=== PATIENT | female | born 1990 | race African-American/Black ===

== ENCOUNTER 2023-05-03 10:24 | Emergency (ER) | payer OTHER ==
[~2023-05-03] VITALS: Ht 152.4 cm; Wt 59.1 kg
[2023-05-03 10:27] VITALS: BP 118/51; TEMP 99.5; O2SAT 98
[2023-05-03 10:28] VITALS: PULSE 104; RESP 18
== END 2023-05-03 10:50 | disposition home or self-care (01) ==
LOC: ER 10:24
DX: Z53.21 Procedure and treatment not carried out due to patient leaving prior to being seen by health care provider (principal)
CPT/HCPCS: 99281

== ENCOUNTER → 2023-06-27 | Outpatient (CLI) | payer OTHER | END | disposition home or self-care (01) | LOC: CT 12:10 | DX: S09.90XA Unspecified injury of head, initial encounter (principal); X58.XXXA Exposure to other specified factors, initial encounter; Y93.89 Activity, other specified; Y92.89 Other specified places as the place of occurrence of the external cause; Y99.8 Other external cause status ==